=== PATIENT | male | born 1960 | race Caucasian/White ===

== ENCOUNTER 2019-04-02 04:48 | Inpatient (IN) ==
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
[2019-03-14 12:20] LABS: Appearance Urine Clear (Clear); Bilirubin Urine Negative (Negative); Blood Urine Negative (Negative); Color Urine Yellow; Glucose Urine UA Negative (Negative); Ketones Urine Negative (Negative); Leukocyte Esterase Urine Negative (Negative); Nitrite Urine Negative (Negative); Protein Urine Negative (Negative); Specific Gravity Urine 1.023 (1.000-1.030); Urobilinogen Urine Negative (Negative)
[2019-03-14 12:25] LABS: Basophils # (auto) 0.04 K/uL (0-0.2); Basophils % (auto) 0.5 %; Eosinophils # (auto) 0.24 K/uL (0-0.5); Eosinophils % (auto) 3.2 %; Hematocrit (blood only) 40.8 % (42-52); Hemoglobin 13.6 g/dL (14.0-18.0); Immature Granulocytes # (auto) 0.07 K/uL (0.00-0.02); Immature Granulocytes % (auto) 0.9 %; Lymphocytes # (auto) 2.04 K/uL (1.2-3.4); Lymphocytes % (auto) 26.9 %; Mean Corpuscular Hemoglobin 29.6 pg (25-34); Mean Corpuscular Hgb Conc 33.3 g/dL (32-36); Mean Corpuscular Volume 88.9 fL (80-100); Mean Platelet Volume 11.9 fL (7.4-10.4); Monocytes % (auto) 7.9 %; Neutrophils # (auto) 4.58 K/uL (1.4-6.5); Neutrophils % (auto) 60.6 %; Platelet Count 137 K/uL (130-400); RDW Coefficient of Variation 14.4 % (11.5-14.5); RDW Standard Deviation 46.9 fL (36.4-46.3); Red Blood Count 4.59 M/uL (4.7-6.1); White Blood Count 7.57 K/uL (4.8-10.8)
[2019-03-14 12:35] LABS: Prothrombin Time 10.2 Seconds (9.0-12.0)
[2019-03-14 12:36] LABS: BUN Creatinine Ratio 25.7 (10-20); Blood Urea Nitrogen 30 mg/dl (7-18); Carbon Dioxide 28 mmol/L (21-32); Chloride 102 mmol/L (98-107); Est GFR (African American) 80.6; Est GFR (Non-African American) 69.5; Glucose 110 mg/dl (70-99); Potassium 3.8 mmol/L (3.5-5.1); Sodium 136 mmol/L (136-145)
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
[2019-04-02] MEDS ORDERED: GABAPENTIN 600 MG DOSE PO SCH (06:00)
[2019-04-02] MEDS ORDERED: CEFAZOLIN 2000MG 2,000 MG/15 ML SYR IV SCH (06:00)
[2019-04-02] MEDS ORDERED: dexAMETHasone 4 MG TAB PO SCH (06:00)
[2019-04-02] MEDS ORDERED: ROPIVACAINE 0.5% HCL/PF 150 MG, BUPIVACAINE 0.5% MPF 30 ML, EPINEPHrine 30MG/30ML (OR U... INSTIL SCH (06:00)
[2019-04-02] MEDS ORDERED: TRANEXAMIC ACID 1,000 MG **IV Pre-op IV SCH (06:00)
[2019-04-02] MEDS ORDERED: FAMOTIDINE 20 MG TAB PO SCH (06:00)
[2019-04-02] MEDS ORDERED: ACETAMINOPHEN 500 MG TAB PO SCH (06:00)
[2019-04-02] MEDS ORDERED: METOCLOPRAMIDE HCL 10 MG TABLET PO SCH (06:00)
[2019-04-02] MEDS ORDERED: CeleBREX 200 MG CAP PO SCH (06:00)
[2019-04-02] MEDS ORDERED: LR 500ML BOLUS, THEN 15ML/HR IV SCH (06:00)
[2019-04-02] MEDS ORDERED: BUPIVACAINE 0.5 % 5 MG/1 ML PF 10ML VIAL ONE (06:18)
[2019-04-02] MEDS ORDERED: BUPIVACAINE/EPINEPHRINE 0.25% 1:200,000 30 ML VIAL ONE (06:18)
[2019-04-02] MEDS ORDERED: TRANEXAMIC ACID 1,000 MG **IV Intra-op IV SCH (06:30)
[2019-04-02] MEDS ORDERED: BACITRACIN INJ 50,000 UNIT VIAL ONE (06:31)
[2019-04-02] MEDS ORDERED: ORTHO JOINT ANESTHETIC ONE (06:31)
[2019-04-02] MEDS ORDERED: ONDANSETRON INJ 2 MG/ML 2 ML VIAL ONE (06:39)
[2019-04-02] MEDS ORDERED: PROPOFOL IV EMULSION 10 MG/ML 20 ML VIAL IV ONE (06:39)
[2019-04-02] MEDS ORDERED: LIDOCAINE HCL 2% 2 ML VIAL/AMP(20MG/ML) INFIL ONE (06:39)
[2019-04-02] MEDS ORDERED: MIDAZOLAM HCL 1 MG/ML 2ML VIAL ONE (06:40)
[2019-04-02] MEDS ORDERED: ONDANSETRON INJ 2 MG/ML 2 ML VIAL IV PRN ×2 (06:46→10:28)
[2019-04-02] MEDS ORDERED: ATROPINE SULFATE 0.1 MG/ML 10ML SYR IV PRN (06:46)
[2019-04-02] MEDS ORDERED: HYDROmorphone INJ 1 MG/ML SYRINGE IV PRN ×2 (06:46→10:28)
[2019-04-02] MEDS ORDERED: fentaNYL citrate 100 MCG/2 ML VIAL IV PRN (06:46)
[2019-04-02] MEDS ORDERED: ePHEDrine sulfate 50 MG/ML AMP IV PRN (06:46)
--- NOTE | 2019-04-02 07:05 | History & Physical Bridge Note ---
Date of Service April 02, 2019 History & Physical Bridge Note I have examined the patient, reviewed the History & Physical and in the interval since the performance of the History & Physical I have noted the following changes of clinical significance: no changes noted
[2019-04-02] MEDS ORDERED: KETAMINE HCL INJ 50 MG/ML 10 ML VIAL ONE (07:21)
[2019-04-02] MEDS ORDERED: SODIUM CHLORIDE 0.9% INJ 10 ML VIAL ONE (07:22)
[2019-04-02] MEDS ORDERED: ePHEDrine sulfate 50 MG/ML SYR ONE (07:46)
--- NOTE | 2019-04-02 08:15 | Operative Report ---
Post Operative Report Pre & Post Diagnosis Operation Date: 04/02/19 07:00 Pre-Op Diagnosis: Tricompartment osteoarthritis of right knee Post-Op Diagnosis: Tricompartment osteoarthritis of right knee I identified the patient and participated in the time-out.: Yes Procedure Operation Date: 04/02/19 07:00 Actual Procedures p Right Total Knee Arthroplasty(Right utilizing [employer]gett [employer] Nephew journey 2 patient matched total knee arthroplasty size 6 femur 6 tibia 12 polyethylene 32 oval patella) - Keny Chau DO Surgeon Keny Chau DO [employer] In[employer] Ajay JONES Estimated Blood Loss 5 Findings Consistent with Post-Op Diagnosis Patient presents with severe end-stage tricompartmental degenerative joint disease of the right knee varus alignment subchondral sclerosis cystic changes marginal osteophytes patient presents with a severe end-stage tricompartmental DJD but no response to conservative management there is moderate to large effusion the above intraoperative findings were noted. Specimens Bone and cartilage Drains Medium bore Hemovac Complications none Disposition Accompanied Patient To Recovery: No Disposition: Recovery Room Indications Patient presents severe end-stage DJD right knee no response with conservative management patient is failed attempted conservative management including physical therapy anti-inflammatories relative rest activity modification corticosteroid injection Visco supplementation and presents for right total knee arthroplasty the above intraoperative findings were noted. Description of Procedure After proper prepping and draping of the Right lower extremity anterior midline incision was made over the region of the extensor extensor mechanism after meticulous hemostasis was obtained and maintained in subcutaneous tissues a medial parapatellar incision was made The patella was subluxed lateralward the medial lateral gutter were cleaned from any hypertrophic synovitis and scar tissue of the distal femoral block was placed and the distal femoral osteotomy cut was made subsequently the chamfers anterior and posterior osteotomy cuts were made utilizing the 4-in-1 block the tibia was subsequently subluxed anteriorward medial and ateral meniscal remnants were excised in their entirety remnants of the anterior and posterior cruciate ligaments were excised in their entirety excellent exposure of the proximal tibia was obtained the tibial osteotomy guide was placed on the proximal tibial osteotomy cut was made once again the knee was irrigated with copious amounts of sterile saline solution the patella was subsequently everted lateralward thickened scar tissue around the patella was removed the patella was subsequently cut utilizing a freehand techni que and was drilled prepared for final preparation and placement of patella socially flexion-extension gaps were checked and the equal and symmetric trials were placed to the appropriate femoral and tibial trials with poly-spacer being placed for equal flexion and extension gaps and full range of motion including extension to 0 and flexion to 140 the trial components after having been taken to recovery range of motion was subsequently removed meticulous hemostasis was obtained and maintained subsequently a knee block injection of joint cocktail including ropivacaine 0.5% 150 mg. Bupivacaine 0.5% epinephrine 1-200,030 mL's toradol 30 mg dexamethasone 4 mg ketamine 10 mg clonidine 100 micrograms normal saline solution 30 mg was infiltrated into the soft tissues of the posterior knee medial lateral gutters and periosteal synovium special attention was paid to protect neurovascular structures at all times subsequently trial components having been removed the knee was irrigated with sterile saline solution. debris was removed the proximal tibia was subsequently prepared and was made ready for the placement of the tibial component tibial component was also cemented and tamped into position the femoral component was subsequently placed and cemented in the position the patellar component was subsequently cemented in position because hemostasis once again obtained and maintained wound having been thoroughly irrigated with debridement and debridement lavage was performed as well as a medial parapatellar incision closed with #1 Vicryl in interrupted fashion subcutaneous was closed with #2 Vicryl skin was closed with skin clips. PA-C was necessary for prepping and drapping as well as wound closure of deep fascia Sub cutaneous tissue and skin and was necessary for the case. A sterile compressive dressing was placed patient was taken to recovery in stable condition of report dictated by Isac I attest to the content of the Intraoperative Record and any orders documented therein. Any exceptions are noted below. I attest to the content of the Intraoperative Record and any orders documented therein. Any exceptions are noted below.
--- NOTE | 2019-04-02 09:34 | Anesthesiology Progress Note ---
Date of Service April 02, 2019 Anesthesia Post Procedure Vital Signs Vital Signs: Temp Pulse Pulse Resp BP Pulse Ox 04/02/19 09:25 36.6 C 58 L 18 105/67 95 04/02/19 09:15 58 L 18 116/59 L 93 04/02/19 09:05 77 18 114/56 L 99 04/02/19 08:55 36.8 C 76 18 114/46 L 98 04/02/19 05:34 36.6 C 56 L 18 136/88 94 Transfer of Care Handoff Completed per policy Notes Mental Status: alert / awake / arousable and participated in evaluation Patient Amnestic to Procedure: Yes Nausea / Vomiting: adequately controlled Pain: adequately controlled Airway Patency, RR, SpO2: stable & adequate BP & HR: stable & adequate Hydration State: stable & adequate Neuraxial Anesthesia: was administered and sensory block is resolving Anesthetic Complications: no major complications apparent and Pt Satisfied with anesthetic care
[2019-04-02] MEDS ORDERED: METOCLOPRAMIDE HCL INJ 5 MG/ML 2 ML VIAL IV PRN (10:28)
[2019-04-02] MEDS ORDERED: MAGNESIUM HYDROXIDE SUSP 30 ML UDC PO PRN (10:28)
[2019-04-02] MEDS ORDERED: NALOXONE HCL 0.4 MG/1 ML VIAL/CARP IV PRN (10:28)
[2019-04-02] MEDS ORDERED: BISACODYL 10 MG SUPP PR PRN (10:28)
[2019-04-02] MEDS ORDERED: PHARMACY GLYCEMIC MGMT CONSULT PRN (10:28)
[2019-04-02] MEDS ORDERED: SODIUM CHLORIDE 0.9% 1000ML 1,000 ML IV SCH (10:28)
--- NOTE | 2019-04-02 10:52 | XRay Report ---
XR knee RT 1 or 2V routine HISTORY: 59 years-old Male Surgical Post Op right knee total joint arthroplasty. History of degenera tive joint disease COMPARISON: None available TECHNIQUE: 2 views of the right knee FINDINGS: Right knee total joint arthroplasty and patella resurfacing. Satisfactory alignment without acute fra cture or definite retained foreign body. Prominent osteophytic spurring is noted posterior to the pro ximal tibiofibular joint. Surgical drainage catheter is noted along with expected postsurgical soft t issue swelling and deep tissue air. IMPRESSION: Satisfactory alignment of the right knee total joint arthroplasty. The above report was generated using voice recognition software. It may contain grammatical, syntax o r spelling errors. Electronically signed by: Tu Hardwick M.D. 04/02/2019 10:51 AM
[2019-04-02] MEDS ORDERED: DEXTROSE 50% 50 ML SYRINGE IV PRN (11:15)
[2019-04-02] MEDS ORDERED: GLUCOSE 40% GEL 15 GM TUBE PO PRN (11:15)
[2019-04-02] MEDS ORDERED: CARBOHYDRATES FOR HYPOGLYCEMIA PO PRN (11:15)
[2019-04-02] MEDS ORDERED: GLUCAGON FOR INJ 1 MG VIAL IM PRN (11:15)
[2019-04-02] MEDS ORDERED: GLUCOSE 10 TABS/TUBE PO PRN (11:15)
[2019-04-02] MEDS: DOCUSATE SODIUM 100 MG CAP PO SCH ×2 (11:25→21:29)
[2019-04-02] MEDS: MULTIVITAMIN TAB PO SCH (11:25)
[2019-04-02] MEDS: ASPIRIN 81 MG ECTAB PO SCH ×2 (11:25→21:28)
[2019-04-02] MEDS: ATORVASTATIN 20 MG TAB PO SCH (11:25)
[2019-04-02] MEDS ORDERED: NovoLIN-N (NPH) PER UNIT CHARGE SQ ONE (11:30)
--- NOTE | 2019-04-02 11:38 | Pharmacy Report ---
Glycemic Control Consultation - Date of Service April 02, 2019 - Scope Scope: Glycemic Pharmacist consulted by Ajay Munoz PA-C on 04/02/19 for glycemic control and to write orders per [facility] inpatient glycemic control protocol - Objective Weight: 107.8 kg Accuchecks BSG (last 24hrs): 04/02/19 04/02/19 05:38 09:00 POC Glucose 136 H 178 H - Recent Pertinent Medications Outpatient Anti-diabetic Regimen: * metformin 500 mg PO BIDM (last dose on Sunday evening) * A1c = pending for 04/03 AM Risk Factors for Insulin Resistance: * Steroids: dexamethasone 8 mg PO x 1, ortho mix * IVF: 0.9% NS @100 mL/hr * Recent Surgery: POD #0 s/p right TKA * Diet: T2 DM - Assessment & Plan Assessment & Plan: ASSESSMENT: * DH is a 59 year old male POD #0 s/p right TKA * PMH includes type 2 DM, hypertension, hyperlipidemia, and osteoarthritis * Patient received 8 mg PO dexamethasone and intra-articular ortho mix intraoperatively * BSG post-op was 178 mg/dL PLAN FOR INPATIENT GLYCEMIC CONTROL: * Pt is maintained on oral antidiabetic agents as an outpatient * Oral agents are not recommended for inpatient use d/t drug interactions, changing PO intake, and difficulty titrating for acute hyper/hypoglycemia. ADA recommends re-initiating outpatient oral agents 1-2 days prior to disc harge if/when appropriate if they were held on admission. * Will hold oral agents for admission and utilize SQ basal bolus insulin regimen which is the recommended regimen for inpatient glycemic control. * Will initiate weight based insulin dosing for insulin torres patient and titrate based on BSG trends. * Basal insulin * NPH 20 units SC x 1 (0.2 unit/kg) - to cover dexamethasone-induced hype rglycemia * Bolus insulin * NovoLog per scale ACHS or Q6hrs while NPO * Goal Range: Low 110 mg/dL - High 140 mg/dL * Correction Factor: 25 mg/dL/unit * Nutritional / Prandial insulin per carb ratio of 1 unit per 9 grams CHO consumed * Will also add 00,04 checks tonight with same parameters * Please note that the plan above was derived based on current level of insulin resistance and hospital stress. These recommendations are appropriate for inpatient admission only. Plan of care upon discharge will need to be reassessed to avoid potential outpatient hypo/hyperglycemia. Thank you.
[2019-04-02] MEDS: INSULIN ASPART 100 UNITS/ML 3 ML PEN SC SCH ×4 (13:13→23:57)
[2019-04-02] MEDS: ACETAMINOPHEN 500 MG TAB PO SCH ×2 (13:14→21:28)
[2019-04-02] MEDS: CEFAZOLIN 2000MG 2,000 MG/15 ML SYR IV SCH ×2 (14:51→22:23)
[2019-04-02] MEDS: OXYCODONE HCL IR 5 MG TAB (IMMEDIATE RELEASE) PO PRN (18:45)
[2019-04-02] MEDS ORDERED: SENNA 8.6 MG TAB PO SCH (21:00)
[2019-04-02] MEDS ORDERED: CHLORTHALIDONE 25 MG TAB PO SCH (21:00)
[2019-04-02] MEDS ORDERED: LISINOPRIL 40 MG TAB PO SCH (21:00)
[2019-04-03] MEDS: INSULIN ASPART 100 UNITS/ML 3 ML PEN SC SCH ×4 (04:12→18:03)
[2019-04-03] MEDS: OXYCODONE HCL IR 5 MG TAB (IMMEDIATE RELEASE) PO PRN ×3 (04:14→15:18)
[2019-04-03] MEDS: ACETAMINOPHEN 500 MG TAB PO SCH ×2 (05:50→13:28)
[2019-04-03 06:53] LABS: Hematocrit (blood only) 31.9 % (42-52); Hemoglobin 10.7 g/dL (14.0-18.0); Mean Corpuscular Hemoglobin 29.8 pg (25-34); Mean Corpuscular Hgb Conc 33.5 g/dL (32-36); Mean Corpuscular Volume 88.9 fL (80-100); Mean Platelet Volume 11.5 fL (7.4-10.4); Platelet Count 121 K/uL (130-400); RDW Coefficient of Variation 14.3 % (11.5-14.5); RDW Standard Deviation 46.4 fL (36.4-46.3); Red Blood Count 3.59 M/uL (4.7-6.1); White Blood Count 13.95 K/uL (4.8-10.8)
[2019-04-03 07:22] LABS: BUN Creatinine Ratio 24.1 (10-20); Calcium 8.4 mg/dl (8.5-10.1); Creatinine Clr Calc Pharmacy 86.1 ml/min; Est GFR (African American) 80.9; Est GFR (Non-African American) 69.8; Potassium 3.8 mmol/L (3.5-5.1)
--- NOTE | 2019-04-03 07:24 | Orthopedic Progress Note ---
Date of Service April 03, 2019 Assessment & Plan (1) Status post total right knee replacement: POD #1 s/p Right TKA pt/ot dvt proph with ELVIRA/SCD/ASA plan for d/c home with HHPT when stable, will recheck after lunch today Subjective POD #1 s/p Right TKA Review of Systems Constitutional: no fever, no chills and no sweats Respiratory: no cough and no dyspnea Cardiovascular: no chest pain and no dyspnea Gastrointestinal: no abdominal pain, no nausea and no vomiting Physical Exam Physical Exam: Vital Signs Temp 36.3 C L 04/03/19 03:15 Pulse 61 04/03/19 03:15 Resp 18 04/03/19 03:15 BP 121/68 04/03/19 03:15 Pulse Ox 95 04/03/19 03:15 Intake & Output 04/02/1904/03/04/03/19 18:59 06:59 18:59 Intake Total 2370 / 3991.667 1621.667 / 3991.66 7 Output Total 835 / 2310 1475 / 2310 Balance 1535 / 1681.667 146.667 / 1681.667 Weight 107.8 kg Intake: IV 920 / 1741.667 821.667 / 1741.667 Lr 1,000 ml @ 15 mls/hr IV . 700 / 700 Q24H JESS Rx#:[id number] Nss 1000ML 1,0 00 ml @ 100 mls/ 821.667 / 821.667 hr IV .Q10H SC H Rx#:[id number] Cyklokapron 1, 000 mg In Sodium 220 / 220 Chloride 100 m l @ 660 mls/hr IV 0630 JESS Rx#:[id number] IV Perioperative 800 / 800 Oral 650 / 1450 800 / 1450 Output: Urine 400 / 1300 900 / 1300 Estimated Blood Loss 5 / 5 Drain Output 430 / 1005 575 / 1005 Right Knee Hem ovac 430 / 1005 575 / 1005 Other: # Unmeasured Voi ds 1 Constitutional: WD/WN, vitals as above no acute distress Musculoskeletal: Right Leg: NVDI, calf SNT, negative aida sign. DP palpable, able to wiggle toes/ankle movement without difficulty. dressing clean dry and intact. Results & Data Vital Signs (Past 12 Hours) Vital Signs Temp Pulse Resp BP Pulse Ox 04/03/19 03:15 36.3 C L 61 18 121/68 95 04/02/19 23:10 36.5 C 55 L 16 114/69 97 04/02/19 20:19 36.6 C 50 L 16 105/65 94 Laboratory Results Laboratory Results WBC 13.95 K/uL (4.8-10.8) H 04/03/19 06:40 RBC 3.59 M/uL (4.7-6.1) L 04/03/19 06:40 Hgb 10.7 g/dL (14.0-18.0) L 04/03/19 06:40 Hct 31.9 % (42-52) L 04/03/19 06:40 MCV 88.9 fL (80-100) 04/03/19 06:40 MCH 29.8 pg (25-34) 04/03/19 06:40 MCHC 33.5 g/dL (32-36) 04/03/19 06:40 RDW Std Deviation 46.4 fL (36.4-46.3) H 04/03/19 06:40 RDW Coeff of Raf 14.3 % (11.5-14.5) 04/03/19 06:40 Plt Count 121 K/uL (130-400) L 04/03/19 06:40 MPV 11.5 fL (7.4-10.4) H 04/03/19 06:40 Immature Gran % (Auto) 0.9 % 03/14/19 10:40 Neut % (Auto) 60.6 % 03/14/19 10:40 Lymph % (Auto) 26.9 % 03/14/19 10:40 Hughes % (Auto) 7.9 % 03/14/19 10:40 Eos % (Auto) 3.2 % 03/14/19 10:40 Baso % (Auto) 0.5 % 03/14/19 10:40 Immature Gran # (Auto) 0.07 K/uL (0.00-0.02) H 03/14/19 10:40 Neut # (Auto) 4.58 K/uL (1.4-6.5) 03/14/19 10:40 Lymph # (Auto) 2.04 K/uL (1.2-3.4) 03/14/19 10:40 Hughes # (Auto) 0.60 K/uL (0.11-0.59) H 03/14/19 10:40 Eos # (Auto) 0.24 K/uL (0-0.5) 03/14/19 10:40 Baso # (Auto) 0.04 K/uL (0-0.2) 03/14/19 10:40 PT 10.2 Seconds (9.0-12.0) 03/14/19 10:40 INR 1.0 (0.9-1.1) 03/14/19 10:40 Sodium 137 mmol/L (136-145) 04/03/19 06:40 Potassium 3.8 mmol/L (3.5-5.1) 04/03/19 06:40 Chloride 104 mmol/L (98-107) 04/03/19 06:40 Carbon Dioxide 25 mmol/L (21-32) 04/03/19 06:40 Anion Gap 8.0 (3-11) 04/03/19 06:40 BUN 28 mg/dl (7-18) H 04/03/19 06:40 Creatinine 1.15 mg/dl (0.6-1.4) 04/03/19 06:40 Est Cr Clr Drug Dosing 86.1 ml/min 04/03/19 06:40 Est GFR ( Amer) 80.9 04/03/19 06:40 Est GFR (Non-Af Amer) 69.8 04/03/19 06:40 BUN/Creatinine Ratio 24.1 (10-20) H 04/03/19 06:40 Glucose 141 mg/dl (70-99) H 04/03/19 06:40 POC Glucose 143 (70-99) H 04/03/19 04:05 Calcium 8.4 mg/dl (8.5-10.1) L 04/03/19 06:40 Urine Color Yellow 03/14/19 10:40 Urine Appearance Clear (Clear) 03/14/19 10:40 Urine pH 5.0 (4.5-7.5) 03/14/19 10:40 Ur Specific [place] 1.023 (1.000-1.030) 03/14/19 10:40 Urine Protein Negative (Negative) 03/14/19 10:40 Urine Glucose (UA) Negative (Negative) 03/14/19 10:40 Urine Ketones Negative (Negative) 03/14/19 10:40 Urine Blood Negative (Negative) 03/14/19 10:40 Urine Nitrite Negative (Negative) 03/14/19 10:40 Urine Bilirubin Negative (Negative) 03/14/19 10:40 Urine Urobilinogen Negative (Negative) 03/14/19 10:40 Ur Leukocyte Esterase Negative (Negative) 03/14/19 10:40 Blood Type A Negative 04/02/19 05:30 Antibody Screen POSITIVE A 04/02/19 05:30 Antibody Identification Anti-Fya 04/02/19 05:30 Antibody ID Comment 04/02/19 05:30 Antigen Identification Fya Antigen - NEGATIVE 03/14/19 10:41 Crossmatch See Detail 04/02/19 05:30 Diagnostic Findings XR knee RT 1 or 2V routine HISTORY: 59 years-old Male Surgical Post Op right knee total joint arthroplasty. History of degenerative joint disease COMPARISON: None available TECHNIQUE: 2 views of the right knee FINDINGS: Right knee total joint arthroplasty and patella resurfacing. Satisfactory alignment without acute fracture or definite retained foreign body. Prominent osteophytic spurring is noted posterior to the proximal tibiofibular joint. Surgical drainage catheter is noted along with expected postsurgical soft tissue swelling and deep tissue air. IMPRESSION: Satisfactory alignment of the right knee total joint arthroplasty.
[2019-04-03] MEDS: DOCUSATE SODIUM 100 MG CAP PO SCH (08:23)
[2019-04-03] MEDS: ATORVASTATIN 20 MG TAB PO SCH (08:23)
[2019-04-03] MEDS: MULTIVITAMIN TAB PO SCH (08:23)
[2019-04-03] MEDS: ASPIRIN 81 MG ECTAB PO SCH (08:23)
[2019-04-03 09:25] LABS: Estimated Average Glucose 140 mg/dl; Hemoglobin A1C 6.5 % (4.5-5.6)
--- NOTE | 2019-04-03 10:24 | Pharmacy Report ---
Pharmacy Glycemic Short Note 2 - Date of Service April 03, 2019 - Glycemic Short BSG Results (Last 24 hours): 04/02/19 04/02/19 04/02/19 12:08 17:11 20:33 Glucose POC Glucose 180 H 209 H 204 H 04/02/19 04/03/19 04/03/19 23:55 04:05 06:40 Glucose 141 H POC Glucose 146 H 143 H 04/03/19 08:08 Glucose POC Glucose 139 H OUTPATIENT ANTIDIABETIC REGIMEN: * metformin 500 mg PO BIDM (last dose on Sunday evening) * A1c = 6.5% (04/03/19) ASSESSMENT: * DH is a 59 year old male POD #1 s/p right TKA * PMH includes type 2 DM, hypertension, hyperlipidemia, and osteoarthritis * Patient received 8 mg PO dexamethasone and intra-articular ortho mix intraoperatively yesterday -no steroids ongoing * Given 20 units (0.2 units/kg) of NPH * BSGs postoperatively ranging 146-209 mg/dL * Patient received 42 units of insulin yesterday (20 of which were NPH) * Fasting BSG this morning of 139 mg/dL * Patient may be discharged later today PLAN FOR INPATIENT GLYCEMIC CONTROL: * Pt is maintained on oral antidiabetic agents as an outpatient * Oral agents are not recommended for inpatient use d/t drug interactions, changing PO intake, and difficulty titrating for acute hyper/hypoglycemia. ADA recommends re-initiating outpatient oral agents 1-2 days prior to discharge if/when appropriate if they were held on admission. * Will hold oral agents for admission and utilize SQ basal bolus insulin regimen which is the recommended regimen for inpatient glycemic control. * Will initiate weight based insulin dosing for insulin torres patient and titrate based on BSG trends. * Bolus insulin - parameters tightened with dinner last night (will continue) * NovoLog per scale ACHS or Q6hrs while NPO * Goal Range: Low 110 mg/dL - High 140 mg/dL * Correction Factor: 20 mg/dL/unit * Nutritional / Prandial insulin per carb ratio of 1 unit per 7 grams CHO consumed PLAN FOR DISCHARGE: * Based on A1c of 6.5% - Reasonable to continue with current regimen of metformin 500 mg PO BIDM at discharge
[2019-04-03 15:14] VITALS: BP 103/65; PULSE 60; TEMP 97.5; O2SAT 94
[2019-04-03] MEDS ORDERED: PERCOCET 5/325MG HOMEPACK PO ONE (17:51)
--- NOTE | 2019-04-03 17:56 | Communication Note ---
Date of Service: April 03, 2019 Pt unsure of being able to get home in time to fill prescriptions. Has a [address] will need to be broken up for at least one short stop to get out to stretch his legs. Percocet homepack will be ordered (4 pills) and to be take 1 tab po q4h prn pain. Discussed plan for no Tylenol while using this medication until he can get is other pain medication filled.
--- NOTE | 2019-04-04 08:32 | Discharge Summary ---
Date of Service date of admission: 04/02/19 date of discharge: 04/03/19 Admission HPI Per Admitting Provider Mr Nettles is a 58 year old male who complains of right knee pain, presents for pre-op evaluation prior to a Right total knee replacement at [facility]. He presents with pain and stiffness on the right side. He states that the symptoms have been chronic non-traumatic and the symptoms have gradually worsened. Currently the patient states that the symptoms are moderate. The pain is described as stabbing and aching. He rates his current pain as 5/10 and worst is 8/10. The symptoms are aggravated by daily activities, walking, stairs and squatting. He has been treated with visco in the past with mild improvement, has tried and failed Tylenol, as well as IBU and Aleve. Principal Diagnosis right knee arthritis Discharge Exam Vital Signs Temp Pulse Pulse Resp BP BP Pulse Ox 04/03/19 17:53 36.4 C L 58 L 60 16 100/60 103/65 94 04/03/19 15:13 36.4 C L 60 16 103/65 94 04/03/19 11:39 36.3 C L 58 L 18 100/60 95 Intake and Output 04/03/19 04/04/19 04/04/19 22:59 06:59 14:59 Output Total 100 / 250 Balance -100 / 250 Output: Drain Output 100 / 250 Right Knee Hemovac 100 / 250 Other: Weight 107.8 kg Constitutional WD/WN, vitals as above no acute distress Musculoskeletal right knee: NVDI, calf SNT, negative aida sign. DP palpable, able to wiggle toes/ankle movement without difficulty. prineo dressing clean dry and intact. expected post-operative bruising noted. Discharge Data Allergies Allergy/AdvReac Type Severity Reaction Status Date / Time No Known Allergies Allergy Verified 04/02/19 05:32 Consultations 04/02/19 10:28 Consult Case Management - Discharge Planning Routine Procedures Performed Operation Date: 04/02/19 07:00 Actual Procedures p Right Total Knee Arthroplasty(Right) - Keny Chau DO Ordered Studies 04/02/19 05:00 US - OR guided needle placemen Routine Hospital Course (1) Status post total right knee replacement: POD #1 s/p Right TKA pt/ot dvt proph with ELVIRA/SCD/ASA plan for d/c home with HHPT after PT. Total Time Total Time Spent Total Time Spent (In Minutes): 20 Total Time Includes: Examination of the Patient, Discharge Planning and Medication Reconciliation Discharge Plan Discharge Items Patient Disposition: Home - Home Health Services Reason For Visit: Unilateral Primary Osteoarthritis Right Knee Discharge Diagnosis: right total knee replacement Activity: Per Instructions section Lifting: Wait until after follow-up appointment Weightbearing: Full weightbearing and Right weightbearing Non-emergency contact: Primary Care Provider and Surgeon Call non-emergency contact if: you have any medication questions, your temperature is above 101, your wound has increased redness, your wound has increased drainage and your wound pain has increased Follow-up/Referrals: Jessica Roche M.D. [Primary Care Provider] - Diet: Carb Consistent or DM2 Addtl Attending Provider Instructions: ACTIVITY RECOMMENDATIONS: SELF CARE INSTRUCTIONS AFTER TOTAL KNEE REPLACEMENT A. You may need to continue a physical therapy program after discharge from the hospital. There are several options available to you. Your doctor will assist you in selecting the best one for you. 1. An out-patient facility 2 to 3 times a week for therapy or home therapy. 2. Continue working on all exercises taught to you in the hospital. Your goals should be to increase bending of your knee to 90 degrees and beyond and to fully straighten your knee. B. You may progress at your own pace from walking with a walker or crutches to a cane; then to no assistive devices. C. Make walking a part of your daily routine. Be up as much as comfortable with rest periods throughout the day. Rest with leg elevation is very important. Use the ice wrap frequently for the first 3-4 weeks. D. There are no restrictions on activities. You may ride in a car, shop, participate in transmission tester and all social activities. E. Wear the long elastic stockings (ELVIRA hose) 20 hours a day for 2 weeks after surgery. They can be removed several times a day for laundering and for a bath. F. You may shower, no tub baths until cleared by your doctor. SPECIAL CARE INSTRUCTIONS: VERY IMPORTANT TO READ AND REVIEW A. There are a few signs you need to watch for after you are home. Call [facility] if you notice any of the followin. Increased severe knee pain. Some pain is expected especially when you exercise. 2. Increased swelling in your leg or knee; pain or swelling of the calf muscle in either lower leg. 3. Any fluid drainage from the incision. 4. Shortness of breath or chest pain. B. Please call [facility] at if you have any concerns or questions about your operation or recovery. The doctor or his nurse will return your call promptly. C. You must take antibiotics before dental work, bladder, bowel or other surgery. Your doctor will provide you with a permanent care to carry describing this precaution. IMPORTANT: * REMEMBER TO TAKE ASPIRIN, 81 MG, TWICE DAILY FOR 4 WEEKS UNLESS OTHERWISE DIRECTED. THIS IS YOUR BLOOD THINNER. * HIGH RISK PATIENTS MAY BE PRESCRIBED A STRONGER BLOOD THINNER. THIS WILL BE PROVIDED AT DISCHARGE. * CALL IF INCREASED PAIN, REDNESS, DRAINAGE OR FEVER GREATER THAT 101. * WEAR ELVIRA HOSE 20 HOURS PER DAY FOR 2 WEEKS. * DERMABOND Prineo- This is a mesh tape dressing that is covered with glue. It should remain in place until the incision is properly healed, usually 10-14 days. This dressing is designed to naturally slough off. You may trim the excess mesh tape as it peels off. Incision may be briefly wet in a shower. Dry immediately by blotting with a clean, dry towel. Do not bath or swim until instructed by your doctor. Do not scratch, rub, or pick at the dressing. Do not apply any topical ointments or lotions until dressing is completely removed and/or instructed by your doctor. There may be a small piece of suture material at one end of your incision. Do not pull or trim this. If it is bothersome or catching on clothing, you may cover it with a band-aid. IF INCISION IS LEAKING THROUGH DRESSING, CALL THE OFFICE . FOLLOW UP VISIT: If appointment is not already scheduled: Please call [facility] to make a follow-up appointment for 2 weeks after your surgery at . Pending Studies at Discharge: Yes Studies:: Pathology report Stand-Alone Forms: My [facility], Opioid Pain Management, Smoking Cessation Medications and DC Order Prescriptions: New sennosides [Senokot] 8.6 mg Tablet 17.2 mg PO HS PRN (Reason: constipation) Qty: 30 RF: 0 aspirin [Ecotrin Low Strength] 81 mg Tablet,Delayed Release (Dr/Ec) 81 mg PO BID 30 Days Qty: 60 RF: 0 acetaminophen [Tylenol Extra Strength] 500 mg Tablet 1,000 mg PO Q8 14 Days Qty: 84 RF: 0 cefadroxil 500 mg capsule 500 mg PO BID Qty: 28 RF: 1 oxycodone 5 mg tablet 5 mg PO Q4H MDD 6 PRN (Reason: pain) Qty: 30 RF: 0 Continued metformin 500 mg Tablet 500 mg PO BID RF: 0 atorvastatin 20 mg Tablet 20 mg PO QAM RF: 0 chlorthalidone 25 mg Tablet 25 mg PO QPM RF: 0 lisinopril 40 mg Tablet 40 mg PO QPM RF: 0 Discontinued aspirin [Aspirin Low Dose] 81 mg Tablet,Delayed Release (Dr/Ec) 81 mg PO DAILY RF: 0 Discharge Orders: Discharge Order (Routine); Ordered 04/03/19 Ordered By: Bubba Harper/Other Patient Handouts: DVT Prevent, Tube Hemovac Drainage Care Dc Admission Data Admit Date/Time: 04/02/19 09:00 Attending Provider: Keny Chau Admit Provider: Keny Chau Primary Care Provider: Jessica Roche V. Other Providers: [facility],Home Health Other Interventions: Discharge Summary Assessment (RN) Last Done: 04/03/19 17:53 DC Date/Time DO NOT enter until pt leaves facility: 04/03/19 18:55
== END 2019-04-03 18:55 | disposition home health service (06) | DRG 470 ==
LOC: ASU 04:48 → 3N 09:00